=== PATIENT | female | born 1960 | race Caucasian/White ===

== ENCOUNTER 2016-11-26 06:54 | Observation (INO) | payer OTHER ==
[2016-11-24 14:00] VITALS: BMI 34.5
[~2016-11-26] VITALS: Ht 161.3 cm; Wt 89.8 kg
[2016-11-26] VITALS (14 sets, daily range): BP systolic 110–135; RESP 10–20; TEMP 96.8–98.2; Ht 161.3 cm; Wt 89.8 kg
[2016-11-26] MEDS ORDERED: EPINEPHrine 1 MG/ML AMP SUBQ ONE (07:31)
[2016-11-26] MEDS ORDERED: LIDOCAINE 2% JELLY 30 ML TOPICAL ONE (07:31)
[2016-11-26] MEDS ORDERED: LIDOCAINE 2% SYR 5 ML IV ONE (07:31)
[2016-11-26] MEDS ORDERED: PROPOFOL 50ML VIAL IV ONE (07:31)
[2016-11-26] MEDS ORDERED: LACT RINGERS 1,000 ML IV SCH ×2 (07:55→09:45)
[2016-11-26] MEDS ORDERED: LIDOCAINE 1% BUFFERED 1 ML SYR INTRADERM PRN (07:55)
[2016-11-27 03:25] VITALS: BP_SYST 130; RESP 18; TEMP 98.2
[2016-11-27 07:31] VITALS: BP_SYST 131; RESP 16; TEMP 98.7
[2016-11-27 11:13] VITALS: BP_SYST 142; RESP 16; TEMP 99
[2016-11-27 13:07] VITALS: BP_SYST 142; RESP 16; TEMP 99
== END 2016-11-27 10:52 | disposition home or self-care (01) ==
LOC: ENRESERVDT → ENRESERVTM → ENDO 06:54 → SDS 09:43 → ENPENDDIS 09:43 → 5THW 10:53
PROVIDERS: ADMIT Internal Medicine Gastroenterology; ATTEND Internal Medicine Gastroenterology
DX: K62.5 Hemorrhage of anus and rectum (principal); D12.0 Benign neoplasm of cecum; D12.5 Benign neoplasm of sigmoid colon; K57.30 Diverticulosis of large intestine without perforation or abscess without bleeding; I10 Essential (primary) hypertension; Z87.891 Personal history of nicotine dependence
CPT/HCPCS: 85014; 85018; 86850; 86900; 86901; 88305